=== PATIENT | male | born 1995 ===

== ENCOUNTER 2020-08-06 16:51 | Emergency (ER) | payer SELFPAY ==
[~2020-08-06] VITALS: Ht 170.2 cm; Wt 84.1 kg
[2020-08-06 16:54] VITALS: Ht 170.2 cm; Wt 84.1 kg
[2020-08-06 18:09] VITALS: BP 119/65
== END 2020-08-06 18:06 | disposition home or self-care (01) ==
LOC: D.ER 16:51
DX: R07.9 Chest pain, unspecified (principal); M94.0 Chondrocostal junction syndrome [Tietze]